=== PATIENT | female | born 1975 | race African-American/Black ===

== ENCOUNTER 2019-01-06 10:01 | Emergency (ER) | payer OTHER ==
[~2019-01-06] VITALS: Ht 167.6 cm; Wt 68.0 kg
[2019-01-06] MEDS ORDERED: TIROSINT112 MCG PO (10:20)
[2019-01-06] MEDS ORDERED: TIROSINT100 MCG PO (10:21)
[2019-01-06] MEDS ORDERED: ZANTAC 150MG T150 M1 PO (10:22)
[2019-01-06] MEDS ORDERED: NEXIUM40 MG PO (10:22)
[2019-01-06] MEDS ORDERED: GABAPENTIN600 M1 PO (10:23)
[2019-01-06] MEDS ORDERED: SINGULAIR 10 MG10 M1 PO (10:34)
[2019-01-06] MEDS ORDERED: PROAIR HFA8.5 GM INH (10:35)
[2019-01-06] MEDS ORDERED: QVAR REDIHALE10.6 G1 INH (10:35)
[2019-01-06] MEDS ORDERED: IPRAT-ALBUT 0.5-3 ML INH (10:36)
[2019-01-06 11:07] LABS: URINE BLOOD NEGATIVE (Negative); URINE CLARITY CLEAR; URINE COLOR YELLOW; URINE GLUCOSE-RANDOM* NEGATIVE (Negative); URINE KETONES NEGATIVE (Negative); URINE LEUKOCYTES-REFLEX NEGATIVE (Negative); URINE NITRITE-REFLEX NEGATIVE (Negative); URINE PROTEIN (DIPSTICK) NEGATIVE (Negative); URINE SPECIFIC GRAVITY 1.025 (1.005-1.035); URINE UROBILINOGEN 0.2 E.U./dl (0.2-1.0)
[2019-01-06 11:08] LABS: ICTOTEST (BILI CONFIRMATORY) Negative (Negative); URINE BILIRUBIN NEGATIVE (Negative)
[2019-01-06 11:26] LABS: AMP/METHAMP Negative (Negative); BARBITURATES Negative (Negative); BENZODIAZEPINES Negative (Negative); COCAINE Negative (Negative); METHADONE Negative (Negative); OPIATES Negative (Negative); PCP Negative (Negative)
[2019-01-06 12:24] LABS: ABSOLUTE NEUTROPHILS 2.1 thou/uL (1.4-8.2); BASOPHILS 1.4 % (0.0-2.0); EOSINOPHILS 0.5 % (0.0-3.0); HEMATOCRIT 33.2 % (37.0-47.0); HEMOGLOBIN 10.6 gm/dL (12.0-15.0); MCH 26.9 pg (26.0-34.0); MCHC 31.9 g/dL (28.0-37.0); MCV 84.5 fL (80.0-100.0); MONOCYTES 11.4 % (1.0-8.0); PLATELET COUNT 373 thou/uL (150-400); POLYS 40.7 % (36.0-66.0); RBC 3.93 mil/uL (4.20-5.00); RDW 14.9 % (10.5-14.5); WBC 5.2 thou/uL (4.0-11.0)
[2019-01-06 12:32] LABS: ANION GAP 6 mmol/L (7-16); BUN 14 mg/dL (7-18); CALCIUM 8.7 mg/dL (8.5-10.1); CHLORIDE 105 mmol/L (98-107); CO2 28 mmol/L (21-32); CREATININE 0.8 mg/dL (0.6-1.0); GLUCOSE 77 mg/dL (74-106); SODIUM 139 mmol/L (136-145)
[2019-01-06 12:37] LABS: ALBUMIN 3.1 g/dL (3.4-5.0); DIRECT BILIRUBIN < 0.1 mg/dL (<0.1-0.3); SGOT 14 U/L (15-37); SGPT 10 U/L (30-65); TOTAL BILIRUBIN 0.2 mg/dL (<0.1-1.0); TOTAL PROTEIN 6.8 g/dL (6.4-8.2)
[2019-01-06] MEDS ORDERED: MOBIC15 MG PO (13:18)
[2019-01-06] MEDS ORDERED: KEPPRA 500 MG500 M1 PO (13:18)
[2019-01-06 14:02] VITALS: BP 118/78
== END 2019-01-06 14:02 | disposition home or self-care (01) ==
LOC: ER 10:01
PROVIDERS: Emergency Medicine
DX: S30.0XXA Contusion of lower back and pelvis, initial encounter (principal); R56.9 Unspecified convulsions; R55 Syncope and collapse; Z88.6 Allergy status to analgesic agent; Z88.5 Allergy status to narcotic agent; Z88.0 Allergy status to penicillin; Z88.2 Allergy status to sulfonamides; Z88.8 Allergy status to other drugs, medicaments and biological substances; W01.0XXA Fall on same level from slipping, tripping and stumbling without subsequent striking against object, initial encounter; Y93.89 Activity, other specified; Y92.89 Other specified places as the place of occurrence of the external cause; Y99.8 Other external cause status